=== PATIENT | male | born 1970 | race Caucasian/White ===

== ENCOUNTER → 2018-01-14 | Outpatient (CLI) | payer BC ==
--- NOTE | 2018-01-14 12:27 | KCIC ---
MRI of the lumbar spine without contrast 01/14/2018 CLINICAL HISTORY: Low back pain for the last 2 weeks which radiates down the left leg. TECHNIQUE: Unenhanced T1-weighted and T2-weighted sagittal and axial and inversion recovery sagittal images of the lumbar spine were obtained. FINDINGS: Minimal S-shaped curvature of the thoracolumbar spine is seen. Degenerative signal changes and loss of height are seen involving the L5-S1 discs. Degenerative signal changes are seen within the marrow surrounding this disc. The conus medullaris is within normal limits in morphology, position, and signal characteristics. At the L1-2, L2-3, L3-4 and L4-5 disc spaces there are minimal to mild generalized disc bulges. Degenerative changes are seen involving the facet joints bilaterally. There is mild ligamentum flavum hypertrophy bilaterally. These findings when combined do not result in significant central spinal canal or neural foraminal stenosis. At the L5-S1 disc space there is a mild to moderate generalized disc bulge. Superimposed on this disc bulge is a left paracentral focal disc protrusion. This measures 4 mm in AP diameter. Degenerative changes are seen involving the facet joints bilaterally. There is mild ligamentum flavum hypertrophy bilaterally. These findings when combined result in mild left-sided central spinal canal stenosis. The disc protrusion displaces the left S1 nerve root posteriorly within the left aspect of the central spinal canal. No neural foraminal stenosis is seen. IMPRESSION: The changes of degenerative disc disease are seen throughout the lumbar spine. These findings result in mild left-sided central spinal canal stenosis at L5-S1 as outlined above. No neural foraminal stenosis is seen. Electronically signed by: Evans Buitrago MD (01/14/2018 12:24 PM) [facility]-KC[facility]
== END | disposition home or self-care (01) ==
LOC: KCIC MRI 10:44
PROVIDERS: ATTEND Family Medicine
DX: M51.16 Intervertebral disc disorders with radiculopathy, lumbar region (principal); M48.07 Spinal stenosis, lumbosacral region
CPT/HCPCS: 72148

== ENCOUNTER → 2018-01-25 | Outpatient (CLI) | payer BC ==
[~2018-01-25] MED LIST: DOCU-109 PO; HYDR-3164 PO; IBUP-1060 PO; METH-38 PO; NAPR220T70 PO
--- NOTE | 2018-01-25 13:34 | EKG ---
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
[2018-01-25 13:56] LABS: BASO # 0.1 x10^3/uL (0.0-0.2); BASO % 1 % (0-3); EOS # 0.2 x10^3/uL (0.0-0.7); EOS % 3 % (0-3); HEMATOCRIT 47.9 % (39.0-53.0); HEMOGLOBIN 16.9 g/dL (13.0-17.5); LYMPH # 1.7 x10^3/uL (1.0-4.8); LYMPH % 24 % (24-48); MEAN CORPUSCULAR HEMOGLOBIN 33 pg (25-35); MEAN CORPUSCULAR HGB CONC 35 g/dL (31-37); MEAN CORPUSCULAR VOLUME 93 fL (79-100); MONO # 0.7 x10^3/uL (0.0-1.1); MONO % 10 % (0-9); NEUT # 4.4 x10^3uL (1.8-7.7); NEUT % 63 % (31-73); PLATELET COUNT 197 x10^3/uL (140-400); RED BLOOD COUNT 5.14 x10^6/uL (4.30-5.70); RED CELL DISTRIBUTION WIDTH 12.5 % (11.5-14.5)
[2018-01-25 13:57] LABS: ALBUMIN/GLOBULIN RATIO 1.1 (1.0-1.7); CALCIUM 9.1 mg/dL (8.5-10.1); CREATININE 0.9 mg/dL (0.7-1.3); GFR 91.3; POTASSIUM 4.4 mmol/L (3.5-5.1); TOTAL BILIRUBIN 0.5 mg/dL (0.2-1.0); TOTAL PROTEIN 7.8 g/dL (6.4-8.2)
== END | disposition home or self-care (01) ==
LOC: SURGPAT 12:11
PROVIDERS: ATTEND Neurological Surgery
DX: Z01.818 Encounter for other preprocedural examination (principal); M51.16 Intervertebral disc disorders with radiculopathy, lumbar region
CPT/HCPCS: 36415; 80053; 85025; 87641; 93005

== ENCOUNTER → 2018-01-31 | Day surgery (SDC) | payer BC ==
--- NOTE | 2018-01-30 16:53 | PREOP HP ---
DATE OF SERVICE: 01/31/[address] Josue Moon [address] for Dr. Ken Sosa. DATE OF SURGERY: 01/31/2018. HISTORY OF PRESENT ILLNESS: The patient is a pleasant 47-year-old who has intermittent problems with back and left leg pain and has for a number of years. He said that beginning in early December, he developed severe episode of fairly low back and left buttock and posterior thigh pain. He notes numbness and feelings of weakness in his left leg. He rates his pain as an 8/10. He relates a number of years ago he saw a surgeon who recommended lumbar surgery for similar problem. His pain is constant. He takes ibuprofen for it. He in the past has had epidural steroid injections and physical therapy, which did not give him lasting relief. He has also noticed difficulties with sleeping and awakening with numbness diffusely in his hands along with pain in his elbows and wrists. PAST MEDICAL HISTORY: Arthritis and hypertension. PAST SURGICAL HISTORY: No surgical history noted. FAMILY HISTORY: Hypertension and migraines. 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 Exercises daily. Denies substance abuse. Smokes 1-1/2 packs per day and has for 30 years. Drinks alcohol 1-2 times per week. ALLERGIES: No known drug allergies. CURRENT MEDICATIONS: Ibuprofen, Aleve. REVIEW OF SYSTEMS: A 12-point review of systems was obtained and is noncontributory except for that mentioned above. PHYSICAL EXAMINATION: NEUROSURGERY EXAMINATION: GENERAL APPEARANCE: Alert, pleasant, no acute distress. HEAD: Normocephalic and atraumatic. SKIN: Warm and dry. MUSCULOSKELETAL: Lumbar paraspinal muscle bulk is normal, restricted range of motion of the lower lumbar spine, mbms-yw-btighyzl tenderness of lower lumbar spine with palpation, normal range of motion of the lower extremities bilaterally. EXTREMITIES: No clubbing, cyanosis or edema. NEUROLOGIC: Alert and oriented x 3. Normal recent and remove memory. Strength is 5/5 in bilateral upper and lower extremities. Sensory was intact to light touch in bilateral upper and lower extremities. Phalen test was positive bilaterally. Tinel test sign was not present. Reflexes were present and symmetric in the upper and lower extremities bilaterally, positive straight leg raising on the left, relieved by Lasegue maneuver. Negative straight leg raising on the right, antalgic gait favoring the left leg. IMAGING: Reviewed. I reviewed a lumbar MRI scan. On that study, there is no evidence of significant spinal stenosis except at L5-S1. There is narrowing of the central canal from disk bulge combined with left paracentral focal disk protrusion. The left S1 nerve root is posteriorly displaced on the left side of the canal. ASSESSMENT: I explained to the patient that his problem I felt was left-sided disk herniation at L5-S1. I explained that I did not feel that the control of urination or bladder function will be significantly affected by the location of the disk herniation. I explained that I did not think right-sided symptoms would also be explained by this problem. I explained the disk herniation. symptomatically would result in the left buttock pain and posterior thigh pain and left-sided back pain, which he is experiencing, which was severe. My recommendation is that because this has been present for some time and he has failed conservative measures, it is for him to undergo lumbar microsurgery at this level. I outlined the surgery and the risk for him. He understands. He would like to go ahead. I also discussed his problems with hand numbness. He has a positive Phalen's bilaterally. I recommended that we move forward with bilateral upper extremity EMG nerve conduction studies to evaluate his peripheral nerves in upper extremities. He would like to proceed. DICTATION ENDS HERE. KEN SOSA MD DR: SIMA/moris JOB#: [id number] / [id number]
[~2018-01-31] VITALS: Ht 185.4 cm; Wt 87.3 kg
[~2018-01-31] MED LIST changes: +0.9 % SODIUM CHLORIDE 20 ML VIAL. IJ ONE; +BACITRACIN 50,000 UNIT in IV NORMAL SALINE 1000ML BAG 1,000 ML IRR ONE; +BUPIVAC MPF-EPI 0.5%-1:200000 30 ML VIAL. ONE; +DESFLURANE > 120 MINUTES IH ONE; +DEXAMETHASONE SOD PHOS 20 MG/5 ML VIAL. ONE; +GELATIN SPONGE SIZE 100. ONE; +GLYCOPYRROLATE 1 MG/5 ML VIAL. ONE; +HYDROcodone/APAP 5/325MG 1 TAB TABLET PO ONE; +HYDROmorphone 2 MG/ML VIAL IV PRN; +IV RINGERS,LACTATED 1000ML 1,000 ML IV SCH; +KETOROLAC 60 MG/2 ML INJ FOR OR. ONE; +LIDOCAINE 1% PF 2 ML VIAL. ID PRN; +LIDOCAINE 2% PF Vial for OR 5 ML VIAL. ONE; +MIDAZOLAM HCL/PF 2 MG/2 ML VIAL. ONE; +MORPHINE SULFATE 2 MG/ML VIAL. IV PRN; +NEOSTIGMINE METHYLSULFATE 5 MG/5 ML SYRINGE. ONE; +ONDANSETRON PF 4 MG/2 ML VIAL. IV PRN; +ONDANSETRON PF 4 MG/2 ML VIAL. ONE; +PROCHLORPERAZINE 10 MG/2 ML VIAL. IV PRN; +PROPOFOL 0 ML IV ONE; +PROPOFOL 20 ML IV ONE; +PROPOFOL 50 ML IV ONE; +REMIFENTANIL 2 MG VIAL. IV ONE; +ROCURONIUM 50 MG/5 ML VIAL. ONE; +THROMBIN TOPICAL 20,000 UNIT SPRAY.SYRN KIT TP ONE; +ceFAZolin 2GM PREMIX 2 GM/50 ML BAG IV ONE; +fentaNYL PF VIAL 100 MCG/2 ML VIAL IV PRN; +fentaNYL PF VIAL 250 MCG/5 ML VIAL ONE
--- NOTE | 2018-01-31 12:17 | DISCH ---
DISCHARGE INSTRUCTIONS Condition on Discharge Condition on Discharge: Stable Activity After Discharge Activity Instructions for Disc: Activity as tolerated, Avoid exertion Other activity instructions: no driving for a week Bathing Instructions: Shower-keep dressing dry Lifting Instructions after Dis: No heavy lifting, No pulling or pushing, Do not lift >10 pounds Diet after Discharge Diet after Discharge: Regular Additional Diet Restrictions: resume home diet Wound Incision Care Wound/Incision Care: Ice to area for comfort Other wound/incision instructi: may remove dressing in 48 hours if dry then may shower, no soaking Contacting the after DC Call your doctor for: Concerns you may have Follow-Up Follow up with: Dr. Sosa's nurse in 2 weeks [phone] ASHLEY SOSA MD Jan 31, 2018 12:17
[2018-01-31] MEDS: fentaNYL PF VIAL 100 MCG/2 ML VIAL IV PRN ×2 (13:37→13:48)
[2018-01-31 14:20] VITALS: BP 167/88
--- NOTE | 2018-01-31 14:47 | OP ---
DATE OF SURGERY: 01/31/2018 PREOPERATIVE DIAGNOSES: Herniated lumbar disc, L5-S1 left with left lumbar radiculopathy. POSTOPERATIVE DIAGNOSES: Herniated lumbar disc, L5-S1 left with left lumbar radiculopathy. OPERATION PERFORMED: Hemilaminotomy and microdiscectomy L5-S1, left. The operation was done with EMG monitoring, fluoroscopy, microscopic dissection. SURGEON: Ken Sosa M.D. RN BABY: LORENA Andrade, assisted with the surgery. She assisted with the exposure, the microdiscectomy as well as the closure. OPERATIVE INDICATIONS: The patient is a pleasant 47-year-old man who developed intractable back and left leg pain, which failed conservative measures. On imaging studies, he appeared to have a chronic disc osteophyte complex at L5-S1 on the left with nerve root compression. I recommended lumbar microsurgery. I spoke with him about the surgery and the risks, the technique and expected postoperative course, and he wished me to go ahead. DESCRIPTION OF PROCEDURE: Following general endotracheal anesthesia, the patient was positioned prone on the Cristian frame. The lumbar region was prepped and draped in standard fashion. JAMIL hose and AV impulse boots were applied for DVT prophylaxis. The microscope was draped. Fluoroscopy was draped and brought in the field. Monitoring was established. Ancef 2 grams was given less than 1 hour prior to initiation of the surgery. Using fluoroscopic guidance, a midline incision was made over the L5-S1 interspace. I dissected down through the skin and subcutaneous tissue, reflected the paraspinal muscles and placed a [place] micro disc retractor. I brought in the microscope, and using the high speed air drill, I burred down a generous hemilaminotomy at L5-S1. I did confirm my position fluoroscopically. I performed a partial foraminotomy, exposing the S1 root and its takeoff around the pedicle, moving inferiorly. I gently retracted the root medially. There was a focal hard disc beneath the root, and I incised the annulus and ligament with #11 blade while gently holding the nerve medially with a micro nerve root retractor and then performed a discectomy with pituitary rongeurs. As I worked, the region became very well decompressed. I continued working very diligently, removed both the scar and disc material and fully decompressed the entire region. The root became much more easily retracted. I irrigated copiously. I obtained excellent hemostasis with bipolar cautery as well as small amounts of bone wax, and then after I explored and assured myself that there were no retained fragments and the area was free, I removed the retractor, obtained hemostasis in the muscle, irrigated and closed the wound in layers with absorbable suture. The skin was closed with 4-0 subcuticular stitch. The operation went very well. I was quite pleased with the surgery. KEN SOSA MD DR: SIMA/moris JOB#: [id number] / [id number] BRIGHT
--- NOTE | 2018-02-06 09:07 | PATHOLOGY ---
[facility] Accession Number: [id number] . 01 Material submitted: . LUMBAR DISC AND DECOMPRESSION . 01 Clinical history: . Lumbar herniated disc and radiculopathy . 02 Diagnosis: "Lumbar disc and decompression", removal: - Portion of fibrocartilaginous with degenerative changes. - Portions of unremarkable skeletal muscle. . (SKM:mml; 02/04/18) QLM/02/04/2018 . 02 Electronically signed: . Hector Lopez MD, Pathologist NPI- [id number] . 01 Gross description: . Received in formalin labeled "Malec, Ezequiel, lumbar disc and decompression," are several pieces of glistening, fibrous tissue measuring 3.1 x 1.8 x 0.8 cm in aggregate dimensions, containing small fragments of possible bone. The tissue submitted representatively in cassette A1. (TSD; 01/31/2018) TOB/TOB . 02 Pathologist provided ICD-10: M51.36 . 02 CPT . 862064 Specimen Comment: A courtesy copy of this report has been sent to Specimen Comment: [phone], . Specimen Comment: Report sent to / DR CHOU Performed at: 01 [facility] [address], [place], [place] [id number] MD Alfie Polanco MD Phone: [phone] Performed at: 02 [facility] [address] [place], [place] [id number] MD Ravindra Walters MD Phone: [phone]
== END | disposition home or self-care (01) ==
LOC: SURG 08:47
PROVIDERS: ATTEND Neurological Surgery
DX: M51.16 Intervertebral disc disorders with radiculopathy, lumbar region (principal); Z88.5 Allergy status to narcotic agent; I10 Essential (primary) hypertension; M19.90 Unspecified osteoarthritis, unspecified site; Z82.49 Family history of ischemic heart disease and other diseases of the circulatory system; Z82.0 Family history of epilepsy and other diseases of the nervous system; Z72.89 Other problems related to lifestyle; F17.210 Nicotine dependence, cigarettes, uncomplicated; Z79.899 Other long term (current) drug therapy
CPT/HCPCS: 63030; 88304; 97162; 97530; A7015; G8978; G8979; G8980; J0690; J1100; J1885; J2001; J2250; J2405; J2704; J2710; J3010; J3490; J7030; J7120; 76000

== ENCOUNTER → 2018-03-20 | Outpatient (CLI) | payer BC ==
[2018-01-31 14:20] VITALS: BP 167/88
[~2018-03-20] MED LIST changes: -0.9 % SODIUM CHLORIDE 20 ML VIAL. IJ ONE; -BACITRACIN 50,000 UNIT in IV NORMAL SALINE 1000ML BAG 1,000 ML IRR ONE; -BUPIVAC MPF-EPI 0.5%-1:200000 30 ML VIAL. ONE; -DESFLURANE > 120 MINUTES IH ONE; -DEXAMETHASONE SOD PHOS 20 MG/5 ML VIAL. ONE; +GADOBUTROL 10 MMOL/10 ML VIAL IV ONE; -GELATIN SPONGE SIZE 100. ONE; -GLYCOPYRROLATE 1 MG/5 ML VIAL. ONE; -HYDROcodone/APAP 5/325MG 1 TAB TABLET PO ONE; -HYDROmorphone 2 MG/ML VIAL IV PRN; -IV RINGERS,LACTATED 1000ML 1,000 ML IV SCH; -KETOROLAC 60 MG/2 ML INJ FOR OR. ONE; -LIDOCAINE 1% PF 2 ML VIAL. ID PRN; -LIDOCAINE 2% PF Vial for OR 5 ML VIAL. ONE; -MIDAZOLAM HCL/PF 2 MG/2 ML VIAL. ONE; -MORPHINE SULFATE 2 MG/ML VIAL. IV PRN; -NEOSTIGMINE METHYLSULFATE 5 MG/5 ML SYRINGE. ONE; -ONDANSETRON PF 4 MG/2 ML VIAL. IV PRN; -ONDANSETRON PF 4 MG/2 ML VIAL. ONE; -PROCHLORPERAZINE 10 MG/2 ML VIAL. IV PRN; -PROPOFOL 0 ML IV ONE; -PROPOFOL 20 ML IV ONE; -PROPOFOL 50 ML IV ONE; -REMIFENTANIL 2 MG VIAL. IV ONE; -ROCURONIUM 50 MG/5 ML VIAL. ONE; -THROMBIN TOPICAL 20,000 UNIT SPRAY.SYRN KIT TP ONE; -ceFAZolin 2GM PREMIX 2 GM/50 ML BAG IV ONE; -fentaNYL PF VIAL 100 MCG/2 ML VIAL IV PRN; -fentaNYL PF VIAL 250 MCG/5 ML VIAL ONE
--- NOTE | 2018-03-20 12:46 | KCIC ---
MRI of the lumbar spine without and with contrast 03/20/2018 CLINICAL HISTORY: Low back pain which radiates down the left leg. History of surgery in January 2018. TECHNIQUE: Unenhanced T1-weighted and T2-weighted sagittal and axial and inversion recovery sagittal images of the lumbar spine were obtained. After the intravenous administration 8 cc of Gadavist, enhanced T1-weighted sagittal and axial images of the lumbar spine were obtained. FINDINGS: Comparison study is dated 01/14/2018. Very mild retrolisthesis of L5 in relation to S1 is noted. Degenerative signal changes and loss of height are seen involving the L5-S1 discs. Degenerative signal changes are seen within the marrow surrounding this disc. The conus medullaris is normal in morphology, position, and signal characteristics. At the L1-2, L2-3, L3-4 and L4-5 disc spaces there are minimal to mild generalized disc bulges. Degenerative changes are seen involving the facet joints bilaterally. There is mild ligamentum flavum hypertrophy bilaterally. These findings do not result in significant central spinal canal or neural foraminal stenosis. At the L5-S1 disc the patient is post left hemilaminotomy. There is a mild generalized disc bulge. Degenerative changes are seen involving the facet joints bilaterally. The left paracentral focal disc protrusion seen on the previous examination has been resected. No recurrent disc herniation is seen. Enhancement surrounds the left aspect of thecal sac and the left S1 nerve root. A 2 cm fluid collection is seen within the laminotomy site which most likely represents a seroma. There is no associated mass effect. No area of significant central spinal canal or neural foraminal stenosis is seen. IMPRESSION: Post left hemilaminotomy at L5-S1. The left paracentral focal disc protrusion seen on the previous examination has been resected. Epidural scarring surrounds the left aspect of thecal sac and left S1 nerve root. No focal recurrent disc herniation is seen. Electronically signed by: Evans Buitrago MD (03/20/2018 12:41 PM) [facility]
== END | disposition home or self-care (01) ==
LOC: KCIC MRI 09:45
PROVIDERS: ATTEND Neurological Surgery
DX: M51.17 Intervertebral disc disorders with radiculopathy, lumbosacral region (principal)
CPT/HCPCS: 72158; A9585

== ENCOUNTER → 2018-04-04 | Outpatient (CLI) | payer BC ==
[2018-01-31 14:20] VITALS: BP 167/88
[~2018-04-04] MED LIST changes: -GADOBUTROL 10 MMOL/10 ML VIAL IV ONE; +IOHEXOL 180 MG/ML 10 ML VIAL. ONE; +methylPREDNISolone ACETATE 40 MG/ML VIAL. ONE; +methylPREDNISolone ACETATE 80 MG/ML VIAL. ONE
--- NOTE | 2018-04-04 19:15 | PAIN ---
DATE OF SERVICE: 04/04/2018 INITIAL CONSULTATION FOR PAIN CLINIC CHIEF COMPLAINT: Low back and left lower extremity pain. HISTORY OF PRESENT ILLNESS: This is a 47-year-old male who presents with history of pain in the low back, left lower extremity for about 2 years, worse over the past few months. The patient did have a lumbar laminectomy in 01/2018, which initially helped, but the pain returned fairly quickly after the surgery in the low back, posterior gluteus, posterolateral thigh, lateral anterior thigh, posterior knee, posterior calf and foot with some numbness and tingling as well. The patient reports it is constant, sharp, throbbing, tingling with numbness and radiating pain is described aching across the low back and some in the mid back as well. The patient reports it awakens him from sleep about 4 times every night. It does affect his bowel and bladder control, but no incontinence. The patient reports it affects his ability to walk ____, but he is not using any assistive devices. The patient has had previous epidural injections prior to his surgery; also, physical therapy, chiropractic treatment currently and doing exercise currently all of which have only helped very minimally. The patient has taken Aleve, hydrocodone as well as ibuprofen, none of which have decreased the pain to a significant extent. The patient took Medrol Dosepak, which helped the pain for about 1 week during the time he was taking it; otherwise it was not significantly helpful long-term. The patient reports no loss of motor function, but significant fatigability of the left lower extremity compared to the right. The patient did have an MRI scan dated 03/20/2018 showing post left hemilaminotomy at L5-S1 with left paracentral focal disk protrusion from previous exam, which has been resected. Epidural scarring surrounds the left aspect of the thecal sac and left S1 nerve root. No focal recurrent disk herniation is seen. The patient reports disability rate from 0-10, 10 being the worst at 5 with family and home responsibilities and social activity and self-care, 8 with recreation and life support activities, and 10 with occupation and sexual behavior. The patient reports no loss of function, but again significant fatigability of the left leg, worse with walking and standing, change in positions, better with sitting or lying down, but again waking him from sleep significantly. PAST MEDICAL HISTORY: Significant for hypertension, cigarette smoking, arthritis. PREVIOUS SURGERY: Include lumbar diskectomy in 2018. As noted, no other surgeries. CURRENT MEDICATIONS: Include coes-phh-gwxkvyj ibuprofen and Aleve. ALLERGIES: The patient has no known drug allergies. FAMILY HISTORY: Significant for no major medical problems or conditions he is aware of. SOCIAL HISTORY: The patient does smoke about 1 pack a day, has for several years. Drinks about 6 alcoholic drinks 3 times a week. Does not use any illegal, illicit or recreational drugs. He is single, has 4 children living at home, lives locally in [place], [place]. 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 He is currently off work since the surgery because of the recurrent pain in the left leg and low back. REVIEW OF SYSTEMS: The patient's review of systems is positive for those items mentioned in the history of present illness. All systems reviewed and were negative. It is complete, full and well documented on the patient's chart. PHYSICAL EXAMINATION: VITAL SIGNS: The patient's blood pressure is 170/115, pulse 91, respirations 18, temperature 97.4 degrees Fahrenheit, height 6 feet 1 inch, weight is 196 pounds. GENERAL: The patient is awake, alert, oriented, appropriate, very pleasant demeanor. HEENT: Head shows normocephalic, atraumatic. Extraocular movements are intact and symmetrical. Oral cavity: Mucous membranes are moist and pink. Dentition is intact. NECK: Shows anterior throat supple without palpable lymphadenopathy noted. Swallow reflex symmetrical. CHEST: Shows normal with inspection. Breath sounds clear to auscultation bilaterally. HEART: Shows S1, S2 clear. No murmurs auscultated. ABDOMEN: Soft, nontender, nondistended. No palpable organomegaly is noted. No rebound or guarding demonstrated. BACK: The patient's back shows spine grossly in the midline. Normal-appearing thoracic kyphosis, some minor flattening of lumbar lordotic curvature. Well-healed surgical scar in the lumbar distribution. Lumbar paraspinous muscle shows symmetrical on inspection, with palpation shows some hnce-fq-kccwkzao tenderness but only diffusely in the low lumbar distribution, but again symmetrical without evidence of atrophy or hypertrophy. The patient has good rotational motion both laterally as well as extension and flexion of the lumbar spine without difficulty or pain reported. No tenderness over the sacrum or sacroiliac region of spinous processes. EXTREMITIES: Lower extremities show deep tendon reflexes 2+ in the patella, 1+ tendo-calcaneus tendons are equal. Motor exam is strong with 5/5 dorsiflexion, extension, quadriceps and hamstring flexion symmetrical. Peripheral pulses are 1+ posterior tibial. No peripheral edema is noted. Lower extremities are warm and dry to touch, equal in color and appearance. The patient's straight leg raise noted to be mildly positive on the left at about 40 degrees, decreased with knee flexion, but right side is negative. Gaenslen's and Nazario's maneuvers are negative bilaterally. Peripheral pulses are 1+ posterior tibia. No peripheral edema is noted. The patient is able to stand, stand on his toes without significant difficulty or loss of balance, walking with a slight shuffling gait, appears to favor the left lower extremity mildly but not using any assistive devices such as canes or walkers to ambulate. SKIN: Shows warm and dry, good turgor. No edema. No sores, rashes or bruising. IMPRESSION: This is a 47-year-old male with: 1. Long history of low back pain, left lower extremity pain for about 2 years status post lumbar hemilaminectomy in 01/2018 with persistent pain in a radicular fashion in the left lower extremity. 2. MRI scan of lumbar spine as noted. 3. Cigarette smoking. 4. Arthritis. 5. Hypertension. PLAN: Options were discussed with the patient including conservative medical management, physical therapy, interventional technique. He would like to pursue interventional technique. We discussed a lumbar epidural steroid injection using description as well as anatomical models to describe the procedure. Risks were then discussed including, but not limited to bleeding, infection, possibility of epidural hematoma and subsequent neurological compromise, dural puncture, headaches, spinal cord and/or nerve damage, side effects of steroid medication and poor results regarding pain control. The patient understands and wished to proceed. The patient to return to clinic in approximately 2 weeks for followup, was counseled as to return appointment, activity level and side effects to be aware of. DIAGNOSES: 1. Lumbar radiculopathy with lumbar degenerative disk disease. 2. Post-laminectomy syndrome. PROCEDURE: Lumbar epidural steroid injection, translaminar approach at the L5-S1 level using C-arm fluoroscopic guidance under sterile prep and drape using local anesthetic. MEDICATION INJECTED: A total of 120 mg Depo-Medrol plus 10 mL of preservative-free normal saline and 2 mL of Isovue for contrast. CONDITION AT DISCHARGE: Stable. The patient tolerated the procedure well, had no complications. TAM POZO MD DR: SRUTHI/moris JOB#: [id number] / [id number] DOUG Vasquez
== END | disposition home or self-care (01) ==
LOC: PNCL 09:29
PROVIDERS: ATTEND Anesthesiology
DX: M51.16 Intervertebral disc disorders with radiculopathy, lumbar region (principal); M96.1 Postlaminectomy syndrome, not elsewhere classified; I10 Essential (primary) hypertension; M19.90 Unspecified osteoarthritis, unspecified site; F17.210 Nicotine dependence, cigarettes, uncomplicated; Z98.890 Other specified postprocedural states; Z79.899 Other long term (current) drug therapy; Z72.89 Other problems related to lifestyle; Z88.5 Allergy status to narcotic agent
CPT/HCPCS: 62323; J1030; J1040; Q9965

== ENCOUNTER → 2019-09-30 | Outpatient (CLI) | payer OTHER ==
[2018-01-31 14:20] VITALS: BP 167/88
[~2019-09-30] MED LIST changes: -IOHEXOL 180 MG/ML 10 ML VIAL. ONE; -methylPREDNISolone ACETATE 40 MG/ML VIAL. ONE; -methylPREDNISolone ACETATE 80 MG/ML VIAL. ONE
--- NOTE | 2019-09-30 12:20 | KCIC ---
EXAM: Right knee, 3 views HISTORY: Right knee pain. COMPARISON: None. FINDINGS: No fractures are identified. There is moderate lateral compartmental joint space narrowing. There are small osteophytes along the lateral and patellofemoral compartments. Alignment is normal. There is a small joint effusion. IMPRESSION: 1. Moderate lateral compartment predominant osteoarthritis. Electronically signed by: Deniz Vicente MD (09/30/2019 12:17 PM) [id number]
== END | disposition home or self-care (01) ==
LOC: KCIC 11:35
PROVIDERS: ATTEND Nurse Practitioner Gerontology
DX: M17.11 Unilateral primary osteoarthritis, right knee (principal); M25.761 Osteophyte, right knee; M25.461 Effusion, right knee
CPT/HCPCS: 73562

== ENCOUNTER → 2020-02-04 | Outpatient (CLI) | payer OTHER ==
[2018-01-31 14:20] VITALS: BP 167/88
--- NOTE | 2020-02-04 17:16 | KCIC ---
EXAM: MRI RIGHT KNEE DATE: 02/04/2020 3:03 PM CLINICAL INDICATION: RIGHT KNEE PAIN-Persistent right knee pain, swelling, crepitus. No specific inju ry. COMPARISON: None. TECHNIQUE: Multiplanar, multisequence MRI of the right knee was performed without contrast. FINDINGS: Moderate right knee joint effusion. No Pruett's cyst. ACL and PCL are intact. MCL, fibular collateral ligament, biceps femoris and IT band are intact. Popliteus is normal in signa l and morphology, intact. Extensor mechanism is intact. Borderline lateral patellar tracking. Medial meniscus: Intact Lateral meniscus: Radial tear of the posterior horn and body lateral meniscus. Full-thickness defect in the posterior aspect of the lateral femoral condyle with subchondral edema. Full-thickness cartilage defect at the lateral, posterior aspect of the lateral tibial plateau with s ubchondral edema. No fracture or osteonecrosis. IMPRESSION: 1. Right knee joint osteoarthritis with is a full-thickness cartilage defects in the lateral compart ment with subchondral edema and proliferative changes. 2. Radial tear body-posterior horn lateral meniscus. 3. Moderate right knee joint effusion. Electronically signed by: Shivam Alejo MD (02/04/2020 5:13 PM) [id number]
== END ==
LOC: KCIC MRI 14:56
PROVIDERS: ATTEND Nurse Practitioner Gerontology
DX: S83.281A Other tear of lateral meniscus, current injury, right knee, initial encounter (principal); M17.11 Unilateral primary osteoarthritis, right knee; M25.461 Effusion, right knee; X58.XXXA Exposure to other specified factors, initial encounter; Y93.89 Activity, other specified; Y92.89 Other specified places as the place of occurrence of the external cause; Y99.8 Other external cause status
CPT/HCPCS: 73721